=== PATIENT | male | born 1995 | race Caucasian/White ===

== ENCOUNTER 2018-04-12 03:28 | Emergency (ER) | payer MEDICAID ==
[~2018-04-12] VITALS: Ht 175.3 cm; Wt 72.0 kg
[~2018-04-12 03:28] MED LIST: ARIP5TAB13 PO; DESM0.2T2 PO; RISP2TAB35 PO
[2018-04-12 03:32] VITALS: BP 117/73
== END 2018-04-12 05:06 | disposition home or self-care (01) ==
LOC: ED 05:00
DX: G89.11 Acute pain due to trauma (principal); N50.811 Right testicular pain; F31.9 Bipolar disorder, unspecified
CPT/HCPCS: 76870; 99284

== ENCOUNTER 2018-05-06 20:17 | Emergency (ER) | payer MEDICAID ==
[~2018-05-06] VITALS: Ht 190.5 cm; Wt 93.3 kg
[2018-05-06 20:23] VITALS: BP 104/61
[2018-05-06] MEDS ORDERED: KETOROLAC 30 MG/1 ML IM ONE (21:00)
[2018-05-06] MEDS ORDERED: KETOROLAC 30 MG/1 ML ONE (21:04)
== END 2018-05-06 21:13 | disposition home or self-care (01) ==
LOC: ED 21:00
DX: S16.1XXA Strain of muscle, fascia and tendon at neck level, initial encounter (principal); F17.210 Nicotine dependence, cigarettes, uncomplicated; V03.90XA Pedestrian on foot injured in collision with car, pick-up truck or van, unspecified whether traffic or nontraffic accident, initial encounter; Y93.01 Activity, walking, marching and hiking; Y92.488 Other paved roadways as the place of occurrence of the external cause; Y99.8 Other external cause status
CPT/HCPCS: 72050; 96372; 99284; J1885

== ENCOUNTER 2018-05-26 20:41 | Emergency (ER) | payer MEDICAID ==
[~2018-05-26] VITALS: Ht 190.5 cm; Wt 93.8 kg
[2018-05-26 20:43] VITALS: BP 108/71
[2018-05-26] MEDS ORDERED: LIDOCAINE-MPF 2%, 2ML ONE (21:27)
[2018-05-26] MEDS ORDERED: LIDOCAINE 1%, 10ML INFIL ONE (21:30)
[2018-05-26] MEDS ORDERED: BACITRACIN ZINC OINT 500U/GM, 0.9 GM ONE (22:19)
== END 2018-05-26 22:37 | disposition home or self-care (01) ==
LOC: ED 21:02
DX: S61.210A Laceration without foreign body of right index finger without damage to nail, initial encounter (principal); S61.212A Laceration without foreign body of right middle finger without damage to nail, initial encounter; F31.9 Bipolar disorder, unspecified; W26.8XXA Contact with other sharp object(s), not elsewhere classified, initial encounter; Y93.89 Activity, other specified; Y92.098 Other place in other non-institutional residence as the place of occurrence of the external cause; Y99.8 Other external cause status
CPT/HCPCS: 12041; 99284

== ENCOUNTER 2018-07-05 02:10 | Emergency (ER) | payer MEDICAID ==
[~2018-07-05] VITALS: Ht 185.4 cm; Wt 97.3 kg
[2018-07-05 02:13] VITALS: BP 114/61
== END 2018-07-05 04:09 | disposition left against medical advice (07) ==
LOC: ED 04:03
DX: Z53.21 Procedure and treatment not carried out due to patient leaving prior to being seen by health care provider (principal)

== ENCOUNTER 2018-08-05 12:11 | Emergency (ER) | payer MEDICAID ==
[~2018-08-05] VITALS: Ht 188 cm; Wt 98.5 kg
[2018-08-05 12:17] VITALS: BP 131/78
== END 2018-08-05 15:16 | disposition home or self-care (01) ==
LOC: ED 12:51
DX: M50.122 Cervical disc disorder at C5-C6 level with radiculopathy (principal); F31.9 Bipolar disorder, unspecified; F17.200 Nicotine dependence, unspecified, uncomplicated; R51 Headache
CPT/HCPCS: 70450; 72125; 93005; 99284

== ENCOUNTER 2018-09-29 20:29 | Emergency (ER) | payer MEDICAID ==
[~2018-09-29] VITALS: Ht 188 cm; Wt 99.4 kg
--- NOTE | 2018-09-29 20:39 | NUR ---
NIL X 1 WHEN CALLED FOR TRIAGE.
[2018-09-29 20:48] VITALS: BP 116/71
[2018-09-29] MEDS ORDERED: DEXAMETHASONE 4 MG TABLET ONE (22:14)
[2018-09-29] MEDS ORDERED: AMOXICILLIN/CLAV 875-125MG TABLET ONE (22:14)
[2018-09-29] MEDS ORDERED: DEXAMETHASONE 4 MG TABLET PO ONE (22:30)
[2018-09-29] MEDS ORDERED: AMOXICILLIN/CLAV 875-125MG TABLET PO ONE (22:30)
== END 2018-09-29 22:28 | disposition home or self-care (01) ==
LOC: ED 22:00
DX: J01.00 Acute maxillary sinusitis, unspecified (principal); H66.002 Acute suppurative otitis media without spontaneous rupture of ear drum, left ear; F17.200 Nicotine dependence, unspecified, uncomplicated
CPT/HCPCS: 99283

== ENCOUNTER 2019-03-31 10:25 | Emergency (ER) | payer MEDICAID ==
[~2019-03-31] VITALS: Ht 185.4 cm; Wt 94.0 kg
[~2019-03-31 10:25] MED LIST changes: -DESM0.2T2 PO; +DESM0.2T5 PO
[2019-03-31 10:27] VITALS: BP 123/84
--- NOTE | 2019-03-31 11:00 | NUR ---
RECTAL EXAM PERFORMED BY LUIS FERNANDO WERNER. PT RESTING WITH NO COMPLAINTS. BP CUFF AND CONTINUOUS SPO2 MONITOR APPLIED.
--- NOTE | 2019-03-31 12:09 | NUR ---
LUNCH RN: Patient/Caregiver given discharge instructions and they have confirmed that they understand the instructions. Patient ambulatory with steady gait.
== END 2019-03-31 12:11 | disposition home or self-care (01) ==
LOC: ED 11:59
DX: K64.4 Residual hemorrhoidal skin tags (principal)
CPT/HCPCS: 99282

== ENCOUNTER 2019-04-19 18:15 | Emergency (ER) | payer MEDICAID ==
[~2019-04-19] VITALS: Ht 188 cm; Wt 93.7 kg
[2019-04-19 18:17] VITALS: BP 117/79
== END 2019-04-19 19:13 | disposition home or self-care (01) ==
LOC: ED 18:52
DX: J02.8 Acute pharyngitis due to other specified organisms (principal); B97.89 Other viral agents as the cause of diseases classified elsewhere; F31.9 Bipolar disorder, unspecified
CPT/HCPCS: 87081; 87880; 99283

== ENCOUNTER 2019-04-24 19:57 | Emergency (ER) | payer MEDICAID ==
[~2019-04-24] VITALS: Ht 188 cm; Wt 92.0 kg
[2019-04-24 20:07] VITALS: BP 112/66
== END 2019-04-24 20:32 | disposition home or self-care (01) ==
LOC: ED 20:24
DX: S80.861A Insect bite (nonvenomous), right lower leg, initial encounter (principal); L02.415 Cutaneous abscess of right lower limb; F31.9 Bipolar disorder, unspecified; F17.210 Nicotine dependence, cigarettes, uncomplicated; W57.XXXA Bitten or stung by nonvenomous insect and other nonvenomous arthropods, initial encounter; Y93.89 Activity, other specified; Y92.89 Other specified places as the place of occurrence of the external cause; Y99.8 Other external cause status
CPT/HCPCS: 99283